=== PATIENT | male | born 1955 | race Caucasian/White ===

== ENCOUNTER → 2016-12-23 | Outpatient (CLI) | payer OTHER ==
[~2016-12-23] MED LIST: ACET160S PO; AMLO10TA2 PO; AMOX875T PO; BUDE10.2 IH; CARV12.52 PO; CETI10TA16 PO; CLIN-44 PO; CYCL10TA2 PO; REGADENOSON 0.4 MG/5 ML DISP.SYRIN. IV ONE
--- NOTE | 2016-12-24 12:44 | RAD ---
APPROVED REPORT Test Type: Pharmacological Stress Nurse/Tech: yashira simmons Test Indications: atypical chest pain Cardiac History: HTN, SEE EHR Medications: SEE EHR Medical History: SMOKER, SEIZURE, STROKE, SEE EHR Resting ECG: SR Resting Heart Rate: 80 bpm Resting Blood Pressure: 152/78mmHg Pretest Chest Pain: No chest pain Nurse/Tech Notes LUNG SOUNDS CLEAR, S1S2 WNL. PT INITIALLY CAME BUT HAD COFFEE THAT MORNING, ATTEMPTED TREADMILL BUT W ABORTED DUE TO PT INABILITY TO WALK ANY FURTHER ON THE TREADMILL. RETURNED FOR MPI. Consent: The procedure was explained to the patient in lay terms. Informed consent was witnessed. Jeremias eout was entered into [employer]. History and Stress Test performed by RT Adonis (R) (N) Pharm. Details Pharmacologic stress testing was performed using 0.4mg per 5ml of regadenoson given intravenously ove r 7-10 seconds. Stress Symptoms NONE STATED. POST EXERCISE Reason for Termination: Infusion complete Max HR: 92 bpm Max Blood Pressure: 148/87mmHg Chest Pain: No. Arrhythmia: No. ST Change: No. INTERPRETATION Stress EKG Conclusion: Baseline EKG showed sinus rhythm. No ischemic changes at peak stress. No arr hythmias. Imaging Protocol IMAGE PROTOCOL: Rest Tc-99m/stress Tc-99m 1 day Rest: Stress: Viability: Radiopharm.Tc99m BtprbvaslAz33h Sestamibi [id number] 34mCi Duration 15min. 10min. Img Date 12/23/2016 12/24/2016 Inj-Img [id number]. 60min. Rest Admin Site:IV - Right HandAdministrator:RT Adonis (Neymar)(N) Stress Admin Site: IV - Right HandAdministrator: RT Adonis (Neymar)(N) STRESS DATA End Diast. Vol.104.0mlAv. Heart Rate82.0bpm End Syst. Vol.36.0mlCO Index BSA0.0L/min Myocardial Ufqx255.0gEject. Zxjewxpg87.0% Stress Rates Pk. Fill Rate2.70EDV/secLVtime Pk. Fill 122.90msec Pk. Empty Rate3.93ESV/secLVtime Pk. Gljjt558.06msec 1/3 Pk. Fill1.55EDV/sec Stress Scores Regional WT0.00Summed WT7.00 Regional WM0.00Summed WM3.00 Study quality was good. Left Ventricular size was Normal at Rest and Stress. Lung uptake was Normal. Left Ventricular ejection fraction is 65%. The rest and stress images show normal perfusion, normal contraction and thickening. LV Perf. Quant 17 Seg. SSS6.00 17 Seg. SRS7.00 17 Seg. SDS2.00 Stress Defect Extent (% LAD)16.30Rest Defect Extent (% LAD)0.00Rev. Defect Extent (% LAD)0.00 Stress Defect Extent (% LCX) 18.80Rest Defect Extent (% LCX)17.50Rev. Defect Extent (% LCX)0.00 Stress Defect Extent (% RCA)0.00Rest Defect Extent (% RCA)0.00Rev. Defect Extent (% RCA)0.00 Stress Defect Extent (% ZEE)13.90Rest Defect Extent (% ZEE)4.30Rev. Defect Extent (% ZEE)0.00 Conclusion 1. Regadenoson cardioisotope stress test did not show any evidence of ischemia or infarct. 2. Normal left ventricular systolic function with ejection fraction calculated at 65%. 3. Low risk for cardiac events.
== END | disposition home or self-care (01) ==
LOC: NM 08:56
PROVIDERS: ATTEND Internal Medicine
DX: R07.89 Other chest pain (principal); I10 Essential (primary) hypertension; Z87.891 Personal history of nicotine dependence
CPT/HCPCS: 78452; 96374; 96375; A9500; 93017; 96376; J2785

== ENCOUNTER → 2017-07-21 | Outpatient (CLI) | payer OTHER ==
[~2017-07-21] MED LIST changes: +ACET500T68 PO; +ASPI325T8 PO; +CARV25TA2 PO; -CLIN-44 PO; +CLIN150C14 PO; +CLON0.1T PO; +HYDR25TA9 PO; +LEVE500T6 PO; +LISI40TA PO; +MELA3TAB2 PO; +MELO15TA23 PO; +MULT1TAB52 PO; +NAPR500T4 PO; +NICO1PAT25 TP; +PHEN-443 PO; +POTA20TA82 PO; -REGADENOSON 0.4 MG/5 ML DISP.SYRIN. IV ONE; +TRAZ50TA15 PO
--- NOTE | 2017-07-21 21:37 | PAIN ---
DATE OF SERVICE: 07/21/2017 INITIAL CONSULTATION FOR PAIN CLINIC CHIEF COMPLAINT: Low back and bilateral lower extremity and hip pain. HISTORY OF PRESENT ILLNESS: This is a 61-year-old male who presents with history of pain for "many years" in low back, bilateral lower extremities, hips, upper mid back as well; worse over the past year or so and much worse over the past 4-5 months. The patient reports no specific injury or accident he is aware of, but in the past has had multiple injuries; said he fell off a 9 feet building and had multiple insults to his back and spine over the years. The patient reports he has had arthritis as well as degenerative disk disease for many years that he is known of. Now, the pain is significantly increasing, is intermittent and intensive, but always present, sharp, sometimes aching, dull, shooting pain in the legs bilaterally mostly in the posterolateral thighs and medial thighs as well as the posterior calf occasionally, somewhat worse in the right knee and on the left low back. The patient reports it awakens him from sleep about 4 times a night. It has not affected his bowel or bladder control, but does affect his ability to walk. He is not using any assistive devices; however, he has had some physical therapy in the past, which was helpful. Chiropractic treatment he starts on this Wednesday on 07/23. He has taken in the past Percodan, tramadol, OxyContin; some of which helped, some did not, but he has not taken any narcotic medications at this time. The patient reports no recent physical therapies, but again starting chiropractic therapy in about 3 days. The patient reports no loss of motor function, but significant fatigability in the bilateral lower extremities with walking and standing. The patient reports pain is much worse with standing and walking, better with sitting or lying down, but again occasionally awakens him from sleep up to 4 times a night. The patient reports no complete loss of motor function. PAST MEDICAL HISTORY: Significant for hearing loss, shortness of breath, COPD, tachycardia, seizures, strokes, urinary tract infections, memory loss, loss of balance, arthritis. PREVIOUS SURGERIES: Included right shoulder surgery x 2, right wrist fracture and left eye surgery and carpal tunnel repair of right hand. CURRENT MEDICATIONS: Complete and well documented on the patient's chart. FAMILY HISTORY: Significant for sciatica in the patient's mother. SOCIAL HISTORY: The patient has not had alcohol to drink in 1 year, had a heavy use in the past. Still smokes marijuana, last time about 1 week ago. Does smoke cigarettes about 4 a day, has for many years. The patient is single, lives with 2 other roommates in [place], [place], and reports he is currently retired. REVIEW OF SYSTEMS: The patient's review of systems is positive for those items mentioned in history of present illness. All systems were reviewed and otherwise negative. It is complete, full and well documented on the patient's chart. PHYSICAL EXAMINATION: VITAL SIGNS: Today, his blood pressure is 142/75, pulse is 62, respiration 16, temperature is 97.9 degrees Fahrenheit, height is 5 feet 7 inches, weight is 175 pounds. GENERAL: The patient is awake, alert, oriented, appropriate, very pleasant demeanor. HEENT: His head shows normocephalic, atraumatic. Extraocular movements are intact and symmetrical. Oral cavity, mucous membranes are moist and pink. Dentition is intact. NECK: Shows anterior throat is supple without palpable lymphadenopathy noted. Swallow reflex is symmetrical. CHEST: Shows normal on inspection, breath sounds are clear to auscultation bilaterally. HEART: Shows S1, S2 clear. No murmurs auscultated. ABDOMEN: Soft, nontender. No palpable organomegaly is noted. No rebound or guarding. MUSCULOSKELETAL: The patient's back shows spine grossly in the midline with normal appearing cervical lordotic curvature, thoracic kyphotic curvature and lumbar lordotic curvature. No previous bruises, lesions, rashes, scars are noted. Lumbar paraspinous muscle shows symmetrical on inspection, but palpation shows diffuse tenderness in the upper, middle and lower distribution in the paraspinous muscles, certainly more in the lower distribution, also some tenderness in the mid and lower thoracic paraspinous muscles, which are symmetrical, also no trigger points, no radiation, but significant diffuse tenderness bilaterally. The patient shows no tenderness over the spinous processes, sacrum or sacroiliac regions, but shows good rotational motion in the lumbar spine both laterally greater than 10 degrees right and left as well as extension greater than 10 degrees, forward flexion of 45 degrees without difficulty. Lower extremities show deep tendon reflexes 1+ in the patellar and tendo-calcaneus tendons. Motor exam is strong with 5/5 dorsiflexion and extension. Quadriceps and hamstring flexion are symmetrical. Peripheral pulses are 1+ posterior tibial and dorsalis pedis pulses. No peripheral edema is noted. No clubbing, no cyanosis. Straight leg raise noted to be negative for reproduction of radicular symptoms bilaterally. No difficulty with Gaenslen's and Cuco's maneuvers, which are both negative. The patient is able to stand, has difficulty standing on his toes ____ to walk. Has a slight favoring gait, appears to favor the right lower extremity over the left slightly, but does not use any assistive device such as canes or walkers to ambulate. IMPRESSION: 1. This is a 61-year-old male with a long history of low back and bilateral lower extremity pain, somewhat worse on the right than the left, currently. 2. Lumbar films showing moderately severe degenerative disk disease on the left at L2-L3, somewhat worse on the prior exam dated 07/31/2016 with previously noted mild degenerative disk disease laterally on the right at L4-L5 and moderately severe at L5-S1. 3. Hypertension. 4. Chronic obstructive pulmonary disease. 5. Arthritis. PLAN: Options were discussed with the patient including conservative medical management, physical therapy, interventional techniques and he would like to pursue most conservative course. We discussed physical therapy. He is starting chiropractic treatment later this week. We will ____ chance to work first, we also discussed possible pool therapy in the future and water physical therapy and also interventional techniques were discussed as well. The patient will return to the clinic in approximately 3 weeks once chiropractic manipulation is started and we will see if he is making some progress with this. If not, we did discuss ordering water physical therapy at that time and we will see how this progresses. The patient understands and agrees and will follow up as scheduled. ALLIE TINOCO MD DR: CRISTAL/linette JOB#: [id number] / [id number]
== END | disposition home or self-care (01) ==
LOC: PNCL 08:51
PROVIDERS: ATTEND Anesthesiology
DX: M51.36 Other intervertebral disc degeneration, lumbar region (principal); M51.37 Other intervertebral disc degeneration, lumbosacral region; J44.9 Chronic obstructive pulmonary disease, unspecified; I10 Essential (primary) hypertension; M25.561 Pain in right knee; M79.605 Pain in left leg
CPT/HCPCS: G0463